=== PATIENT | female | born 1990 | race African-American/Black ===

== ENCOUNTER 2018-07-12 15:42 | Emergency (ER) | payer OTHER ==
[2018-07-12 16:28] LABS: Bilirubin Negative (Negative); Blood, Urine Trace (Negative); Clarity Cloudy (Clear); Glucose, Urine (Dipstick) Negative (Negative); Leukocyte Moderate (Negative); Nitrite Negative (Negative); Protein, Urine (Dipstick) Negative (Neg-Trace); Urobilinogen 0.2 mg/dL (0.2-1.0); pH, Urine 5.5 (5.0-9.0)
[2018-07-12 16:30] LABS: Pregnancy Test - Urine (BHCG) POSITIVE (Negative); Pregu Control Background? CLEAR/WHITE (CLR/WHITE); Pregu Control Bar Appear? YES (CONTROL BAR); Specific Gravity 1.028 (1.002-1.036); Specific Gravity, Urine 1.028 (1.002-1.036)
[2018-07-12 16:34] LABS: RBC/HPF 0-3 HPF (0-3)
[2018-07-12 16:35] LABS: Bacteria/HPF 2+ HPF (None Seen); Crystals/HPF 1+ CA OXALATE HPF (Negative)
--- NOTE | 2018-07-12 16:55 | ULT ---
ULTRASOUND OBSTETRICAL COMPLETE: 07/12/18 HISTORY: 27-year-old female with pelvic pain. No vaginal bleeding. FINDINGS: number: Reilly. lie: Breech. Maternal cervix: poorly visualized. Placenta: Posterior. No placenta previa. Amniotic fluid volume: CIERRA = 9.5 cm. heart rate: 145 bpm anatomy not evaluated in detail. biometry: Head circumference (HC): 19.1 cm 21w 3d Biparietal diameter (BPD): 5.0 cm 21w 0d Abdominal circumference (AC): 14.9 cm 20w 1d Femur length (FL): 3.4 cm 20w 6d Average ultrasound age (AUA): 20w 5d Estimated date of delivery (NADEEM): 11/24/2018 Last menstrual period (LMP): 02/10/18 Gestational age by LMP: 21w, 5d. Estimated weight (EFW): 362 g +/- 54 g (0 lb 13 oz +/- 2 oz). IMPRESSION: 1. Live second trimester intrauterine gestation. 2. Estimated gestational age of 20 weeks, 5 days. 3. Breech lie. DAVIS Dutta POS: AMISH
[2018-07-12 17:09] LABS: Band 4 % (5-11); Eosinophils 3 % (0-10); Hemoglobin 11.3 g/dL (12.0-16.0); Lymphocytes 11 % (21-51); MDiff Complete? YES; Mean Corpuscular HGB CONC 32.3 g/dL (32.0-36.0); Mean Corpuscular Hemoglobin 28.8 pg (27.0-31.0); Mean Corpuscular Volume 89.2 fL (78.0-98.0); Mean Platelet Volume 11.8 fL (7.4-10.4); Monocytes 5 % (0-10); Neutrophil 76 % (42-75); PLT Morphology Comment Appears Decreased; Platelet Count 213 thou/uL (130-400); RBC Distribution Width 12.7 % (11.5-14.5); Reactive Lymphocytes 1 % (0-10); Red Blood Cell (RBC) Count 3.93 mill/uL (4.20-5.40); White Blood Cell (WBC) Count 10.9 thou/uL (4.8-10.8)
[2018-07-12 17:10] LABS: ALT (SGPT) 19 U/L (8-55); AST (SGOT) 19 U/L (5-34); Albumin 3.7 g/dL (3.5-5.0); Alkaline Phosphatase 81 U/L (40-150); Anion Gap 12 mmol/L (10-20); BUN (Urea Nitrogen) 6 mg/dL (7.0-18.7); Bilirubin, Total 0.2 mg/dL (0.2-1.2); Calc. Creatinine Clearance 0 mL/min (70-130); Calcium 9.7 mg/dL (7.8-10.44); Carbon Dioxide 23 mmol/L (22-29); Chloride 105 mmol/L (98-107); Estimated GFR-MDRD Greater than 90; Globulin 3.2 g/dL (2.4-3.5); Glucose 88 mg/dL (70-105); Potassium 3.8 mmol/L (3.5-5.1); Protein, Total 6.9 g/dL (6.0-8.3); Sodium 136 mmol/L (136-145)
== END 2018-07-12 17:23 | disposition home or self-care (01) ==
LOC: SCSER 15:42
DX: O99.89 Other specified diseases and conditions complicating pregnancy, childbirth and the puerperium (principal); R10.30 Lower abdominal pain, unspecified; Z3A.21 21 weeks gestation of pregnancy
CPT/HCPCS: 36415; 76815; 80053; 81003; 81015; 81025; 85025; 87480; 87491; 87510; 87591; 87660

== ENCOUNTER 2018-11-07 12:56 | Inpatient (IN) | payer OTHER ==
[2018-11-07] MEDS ORDERED: Methylergonovine 0.2 MG/ML VIAL IM PRN (13:43)
[2018-11-07] MEDS ORDERED: Promethazine HCl 25 MG/ML VIAL IM PRN (13:43)
[2018-11-07] MEDS ORDERED: Misoprostol 200 MCG TAB PR PRN (13:43)
[2018-11-07] MEDS ORDERED: Zolpidem Tartrate 5 MG TAB PO PRN (13:43)
[2018-11-07] MEDS ORDERED: Ibuprofen 800 MG TAB PO PRN (13:43)
[2018-11-07] MEDS ORDERED: NS / Oxytocin 40 units/1000ml 1,000 ML IV PRN (13:43)
[2018-11-07] MEDS ORDERED: HYDROcodone/Acetaminophen 5/325 mg Tablet PO PRN ×2 (13:43)
[2018-11-07] MEDS ORDERED: Butorphanol Tartrate 1 MG/ML VIAL SLOW IVP PRN (13:43)
[2018-11-07] MEDS ORDERED: Carboprost 250 MCG/ML AMP IM PRN (13:43)
[2018-11-07] MEDS ORDERED: Lidocaine 1% (PF) 30 ML VIAL SC PRN (13:43)
[2018-11-07] MEDS ORDERED: Docusate 100 MG CAP PO PRN (13:43)
[2018-11-07] MEDS ORDERED: Ondansetron PF 4 MG/2 ML Vial IVP PRN (13:43)
[2018-11-07] MEDS: Lactated Ringer's 1,000 ML IV SCH ×2 (13:45→19:51)
[2018-11-07] MEDS ORDERED: NS w/ Oxytocin 10 units 500 ML IV SCH (13:45)
[2018-11-07 14:17] LABS: Hemoglobin 10.5 g/dL (12.0-16.0); Mean Corpuscular HGB CONC 31.4 g/dL (32.0-36.0); Mean Corpuscular Hemoglobin 26.4 pg (27.0-31.0); Mean Platelet Volume 9.1 fL (7.4-10.4); Platelet Count 313 thou/uL (130-400); RBC Distribution Width 14.7 % (11.5-14.5); Red Blood Cell (RBC) Count 3.99 mill/uL (4.20-5.40); White Blood Cell (WBC) Count 11.7 thou/uL (4.8-10.8)
[2018-11-07 14:31] VITALS: BMI 34.2
[2018-11-07 15:01] LABS: Syphilis Antibody Nonreactive (Nonreactive); Syphilis Antibody Index 0.08 S/CO (<1.00 Non-Reactive)
[2018-11-07 15:02] LABS: Hep B Surf Ag Non-Reactive S/CO (NonReactive)
[2018-11-07] MEDS: Misoprostol 100 MCG TAB VAG SCH ×2 (15:17→18:08)
[2018-11-08] MEDS ORDERED: Lidocaine 1.5% w/Epi 1:200K 30 ML VIAL (Epid Use) ONE (00:13)
[2018-11-08] MEDS ORDERED: Fentanyl 4 mcg/Bup 0.1% Cadd 100 ML ONE ×3 (00:14→13:37)
[2018-11-08] MEDS ORDERED: ePHEDrine/0.9% NaCl/PF SYRINGE 50 mg/10 ml SLOW IVP PRN (00:40)
[2018-11-08] MEDS ORDERED: Acetaminophen 325 MG TAB PO PRN (00:40)
[2018-11-08] MEDS ORDERED: Lactated Ringer's 500 ML IV PRN (00:40)
[2018-11-08] MEDS ORDERED: Eucerin (Mineral Oil/Petrolatum,White) 30 gm Jar TOP PRN (00:40)
[2018-11-08] MEDS ORDERED: Promethazine HCl 25 MG/ML VIAL IM PRN ×2 (00:40→17:40)
[2018-11-08] MEDS ORDERED: Ondansetron PF 4 MG/2 ML Vial IVP PRN ×2 (00:40→17:40)
[2018-11-08] MEDS ORDERED: diphenhydrAMINE 50 MG/ML VIAL IVP PRN (00:40)
[2018-11-08] MEDS ORDERED: Naloxone HCl 0.4 mg/ml Vial IVP PRN ×2 (00:40)
[2018-11-08] MEDS: Lactated Ringer's 1,000 ML IV SCH ×2 (00:43→18:46)
[2018-11-08] MEDS ORDERED: Communication Order-Pharmacy FS SCH (00:45)
[2018-11-08] MEDS: Fentanyl 4 mcg/Bupivacaine 0.1% Cassette 100 ML EPIDURAL SCH ×3 (01:05→13:58)
[2018-11-08] MEDS: NS w/ Oxytocin 10 units 500 ML IV SCH ×2 (08:43→18:47)
[2018-11-08] MEDS: Misoprostol 100 MCG TAB VAG SCH ×3 (13:08→18:47)
[2018-11-08] MEDS ORDERED: Benzocaine/Menthol 20-0.5% 60 ML CAN TOP PRN (17:40)
[2018-11-08] MEDS ORDERED: diphenhydrAMINE 25 MG CAP PO PRN (17:40)
[2018-11-08] MEDS ORDERED: Bisacodyl 10 MG SUPP PR PRN (17:40)
[2018-11-08] MEDS ORDERED: Milk Of Magnesia 30 ML UDCUP PO PRN (17:40)
[2018-11-08] MEDS ORDERED: Preparation H Ointment 28 GM TUBE PR PRN (17:40)
[2018-11-08] MEDS ORDERED: HYDROcodone/Acetaminophen 5/325 mg Tablet PO PRN ×2 (17:40)
[2018-11-08] MEDS: NS / Oxytocin 40 units/1000ml 1,000 ML IV SCH ×2 (18:20→19:34)
[2018-11-08] MEDS: Ibuprofen 800 MG TAB PO SCH (19:34)
[2018-11-08] MEDS: Docusate Calcium (SURFAK) 240 MG CAP PO SCH (19:34)
[2018-11-09] MEDS: Ibuprofen 800 MG TAB PO SCH ×3 (03:35→21:20)
[2018-11-09 06:09] LABS: Hemoglobin 10.2 g/dL (12.0-16.0); Mean Corpuscular HGB CONC 31.6 g/dL (32.0-36.0); Mean Corpuscular Hemoglobin 27.1 pg (27.0-31.0); Mean Corpuscular Volume 85.6 fL (78.0-98.0); Mean Platelet Volume 8.4 fL (7.4-10.4); Platelet Count 258 thou/uL (130-400); RBC Distribution Width 14.8 % (11.5-14.5); Red Blood Cell (RBC) Count 3.78 mill/uL (4.20-5.40); White Blood Cell (WBC) Count 11.9 thou/uL (4.8-10.8)
[2018-11-09] MEDS: Ferrous Sulfate 325 MG TAB PO SCH ×2 (08:22→18:39)
[2018-11-09] MEDS ORDERED: Varicella virus, LIVE 0.5 ML VIAL SC ONE (09:00)
[2018-11-09] MEDS ORDERED: Measles/Mumps/Rubella 10 MCG/0.5 ML VIAL SC ONE (09:00)
[2018-11-09] MEDS ORDERED: Adacel (T-DAP) 0.5 ML SYRINGE IM ONE (09:00)
[2018-11-09] MEDS: Prenatal Vitamin 1 TAB PO SCH (09:34)
[2018-11-09] MEDS: Docusate Calcium (SURFAK) 240 MG CAP PO SCH ×2 (09:34→21:20)
[2018-11-10] MEDS: Ibuprofen 800 MG TAB PO SCH (04:45)
[2018-11-10 08:09] VITALS: BP 111/58; TEMP 97.6
[2018-11-10] MEDS: Ferrous Sulfate 325 MG TAB PO SCH (09:15)
[2018-11-10] MEDS: Prenatal Vitamin 1 TAB PO SCH (09:36)
[2018-11-10] MEDS: Docusate Calcium (SURFAK) 240 MG CAP PO SCH (09:37)
--- NOTE | 2018-11-10 11:19 | PDOC.LDHP ---
Labor and Delivery H&P Chief complaint: other (Oligohydramnios) HPI: 27 y/o at 38 and 4/7 weeks with CIERRA of 4cm - brought in for term medical induction of labor. Due date: 11/17/18 Dating criteria: last menstrual period Grav: 2 Para: 0 Abnormal US findings: Yes (CIERRA 4 cm.) Current medications: pre- vitamins Previous surgical history: other Allergies/Adverse Reactions: Allergies Allergy/AdvReac Type Severity Reaction Status Date / Time No Known Allergies Allergy Verified 11/07/18 14:24 - Physical Exam Vital signs reviewed and normal: yes General: NAD Heart: RRR Lungs: nonlabored breathing Abdomen: gravid Extremeties: no edema FHT: category 1 - Vaginal Exam cm dilated: 2 - Assessment L&D Assessment: medically indicated induction - Plan Plan: admit to L&D, cervical ripening
--- NOTE | 2018-11-10 11:21 | PDOC.PP ---
Post Progress Note Post Day #: 1 PO intake tolerated: yes Flatus: yes Ambulation: yes Vital Signs (12 hours) Temp Pulse Resp BP Pulse Ox 11/10/18 08:08 97.6 F 62 20 111/58 L 97 Weight Weight 225 lb - Physical Examination General: NAD Cardiovascular: no m/r/g Respiratory: clear to auscultation bilaterally, non-labored breathing Abdominal: + bowel sounds, lochia, no distention Extremities: negative homans (B) Neurological: no gross focal deficits Psychiatric: A&Ox3, normal affect Result Diagrams: 11/09/18 05:57 Additional Labs: Post Labs Blood Type O POSITIVE 11/07/18 13:34 Hep Bs Antigen Non-Reactive S/CO (NonReactive) 11/07/18 13:34
--- NOTE | 2018-11-10 11:22 | PDOC.PP ---
Post Progress Note Post Day #: 2 PO intake tolerated: yes Flatus: yes Ambulation: yes Vital Signs (12 hours) Temp Pulse Resp BP Pulse Ox 11/10/18 08:08 97.6 F 62 20 111/58 L 97 Weight Weight 225 lb - Physical Examination General: NAD Cardiovascular: no m/r/g, RRR Respiratory: clear to auscultation bilaterally Abdominal: + bowel sounds, lochia, no distention Extremities: negative homans (B) Neurological: no gross focal deficits Psychiatric: A&Ox3, normal affect Result Diagrams: 11/09/18 05:57 Additional Labs: Post Labs Blood Type O POSITIVE 11/07/18 13:34 Hep Bs Antigen Non-Reactive S/CO (NonReactive) 11/07/18 13:34
--- NOTE | 2018-11-11 03:09 | DN ---
DATE OF PROCEDURE: 11/08/2018 PREOPERATIVE DIAGNOSIS: Intrauterine at 38 weeks and 5 days with term medical induction for oligohydramnios. POSTOPERATIVE DIAGNOSIS: Intrauterine at 38 weeks and 5 days with term medical induction for oligohydramnios. PROCEDURE: Spontaneous vaginal delivery over intact perineum. FINDINGS: Viable female infant weighing 2957 g or 6 pounds 8 ounces, Apgars 9 and 9. QUANTITATIVE BLOOD LOSS: 95 g. COMPLICATIONS: None. PROCEDURE IN DETAIL: The patient presented to [facility] where she was admitted to the labor and delivery service. The patient underwent a normal and uneventful labor with normal cervical dilatation until she was found to be completely dilated. She was then allowed to push and was able to bring the baby down and delivered the baby in a vertex presentation without difficulties. Once the head delivered in occiput anterior position, the shoulders followed spontaneously along with the rest of the baby's body. Once out the baby's mouth and nose were bulb suctioned. The cord was clamped and cut and baby was handed to waiting attendants. Cord blood was collected. Gentle fundal massage was performed and the placenta delivered intact without problems. Hemostasis was assured. Quantitative blood loss was calculated. Inspection of the cervix, vaginal vault, and perineum did not reveal any lacerations needing suturing. Once again, hemostasis was within normal limits and the patient was allowed to recover in the labor and delivery room. Baby went to nursery. Job ID: [id number]
== END 2018-11-10 12:15 | disposition home or self-care (01) | DRG 807 ==
LOC: L&D/OP 12:56 → EDSTATUS 13:10 → L&D 13:12 → 3SW 11-08 18:51
PROVIDERS: ADMIT Obstetrics & Gynecology; ATTEND Obstetrics & Gynecology
PROC: 10E0XZZ Delivery of Products of Conception, External Approach (ICD-10-PCS; principal; 2018-11-08)
DX: O41.03X0 Oligohydramnios, third trimester, not applicable or unspecified (principal); Z37.0 Single live birth; Z3A.38 38 weeks gestation of pregnancy
CPT/HCPCS: 36415; 51702; 85027; 86780; 86850; 86900; 86901; 87340; 90715; J2001